=== PATIENT | male | born 1960 | race Caucasian/White ===

== ENCOUNTER 2020-10-31 07:15 | Day surgery (SDC) | payer MEDICARE ==
[~2020-10-31 07:15] MED LIST: Lactated Ringers 1,000 ML IV SCH
[2020-10-31] MEDS ORDERED: Lactated Ringers 1,000 ML IV ONE (07:18)
[2020-10-31] MEDS ORDERED: DIPRIVAN 200 MG/20 ML IV ONE (07:42)
--- NOTE | 2020-10-31 09:43 | OP ---
SURGERY DATE/TIME: 10/31/2020 0743 PREOPERATIVE DIAGNOSIS: Screening exam. POSTOPERATIVE DIAGNOSIS: Sigmoid diverticulosis otherwise normal colon. PROCEDURE: Colonoscopy. SURGEON: Dr. Fernández. ANESTHESIA: MAC. Medications given by anesthesia department. HISTORY: The patient is a 60 year-old white male patient presenting now for screening colonoscopy. He was appraised of the risks of the procedure including the risk of perforation, phlebitis, untoward reaction to medication, bleeding and missed lesions. The patient verbalized his understanding and desired to have the procedure performed. DESCRIPTION OF PROCEDURE: The patient was given the medications by the anesthesia department. He had continuous pulse oximetry, ECG monitoring, intermittent blood pressure monitoring and tidal CO2 monitoring during the examination. He was placed in the left lateral decubitus position. A digital rectal examination was performed and revealed normal anal sphincter tone, no masses and normal prostate. The flexible Olympus pediatric colonoscope was used to intubate the rectum. A view of the colon was developed sequentially to the cecum. Upon insertion and withdrawal including a retroflex view in the rectum was noted mild to moderate sigmoid diverticulosis otherwise no mucosal lesions were encountered. The scope was removed from the patient who tolerated the procedure well and was sent back to OP recovery in good condition. The prep was noted to be fair to good.
[2020-10-31 10:28] VITALS: O2SAT 100
[2020-10-31 10:33] VITALS: BP 131/70; PULSE 65
== END 2020-10-31 08:50 | disposition home or self-care (01) ==
LOC: SDC 07:15
PROVIDERS: ATTEND Family Medicine
DX: Z12.11 Encounter for screening for malignant neoplasm of colon (principal); K57.30 Diverticulosis of large intestine without perforation or abscess without bleeding
CPT/HCPCS: J2704

== ENCOUNTER 2022-03-08 10:29 | Day surgery (SDC) | payer MEDICARE ==
--- NOTE | 2022-03-08 08:12 | HP ---
DATE OF SURGERY: 03/08/2022 HISTORY OF PRESENT ILLNESS: The patient is a 62-year-old with increasing in size defect mid abdomen, increased size with strain and discomfort. It was felt the patient had incarcerated ventral hernia low epigastric as well as mid abdomen. I recommend repair laparoscopic-assisted possible open incarcerated ventral hernia with mesh. PAST MEDICAL HISTORY: Depression, hyperlipidemia, hypertension, chronic obstructive pulmonary disease, psoriasis. PAST SURGICAL HISTORY: Inguinal hernia repair x2. MEDICATIONS: Ventolin, theophylline, testosterone, sertraline, lisinopril, Combivent, amlodipine, Advair Diskus, aspirin. He has taken some Viagra in the past. ALLERGIES: NKDA. FAMILY HISTORY: Heart disease. SOCIAL HISTORY: One pack per day smoker. REVIEW OF SYSTEMS: Fourteen systems reviewed. No chest pain or palpitations. Other systems negative or noncontributory as above and per preadmission questionnaire. PHYSICAL EXAMINATION: GENERAL: No acute distress. HEENT: Sclerae nonicteric. NECK: No JVD. CHEST: Equal excursion, nonlabored breathing. CVS: Regular rate and rhythm. ABDOMEN: Soft, increasing defect epigastric and mid abdomen likely with some incarcerated fat or omentum. EXTREMITIES: No significant edema. NEURO: Alert, moving extremities symmetrically. No gross motor deficits noted. RECTAL: Deferred timed to endoscopy exam. PSYCH: Appropriate mood and affect. IMPRESSION: Incarcerated ventral hernia. I feel the patient would benefit from repair. Discussed options of laparoscopic-assisted repair with mesh possible open. General risk of bleeding or infection, risk of trocar injury or hernia, risk of bowel, bladder, blood vessel injury, risk of adhesion, scar formation or obstruction. Perioperative risk of ileus, aches and pains possible tank filler or chronic in nature. Risk of recurrence. Risk of mesh infection possibly requiring removal. Risk of hematoma or seroma formation, risk of hernia recurrence, remote risk of mesh fracture or failure possibly creating issue with the viscera or other structures. General risk of anesthesia, sedation, deep venous thrombosis, pulmonary embolism, pneumonia but not limited to, possible need for admission for pain control. Consent obtained, will proceed with laparoscopic-assisted repair of incarcerated ventral hernia with mesh possible open as an outpatient.
[~2022-03-08 10:29] MED LIST changes: -Lactated Ringers 1,000 ML IV SCH; +Sensorcaine 0.25% 10 ML ONE
[2022-03-08] MEDS ORDERED: CEFAZOLIN 2 GM-D5W BAG** 2 GM/50 ML ML IV ONE (10:56)
[2022-03-08] MEDS ORDERED: Lactated Ringers 1,000 ML IV ONE (10:56)
[2022-03-08] MEDS: Lactated Ringers 1,000 ML IV SCH (10:59)
[2022-03-08] MEDS: CEFAZOLIN 2 GM-D5W BAG** 2 GM/50 ML ML IV SCH (10:59)
[2022-03-08] MEDS ORDERED: Versed 2 MG/2 ML Injection ONE (12:57)
[2022-03-08] MEDS ORDERED: DIPRIVAN 200 MG/20 ML IV ONE (12:58)
[2022-03-08] MEDS ORDERED: SUBLIMAZE 250 MCG/5 ML ONE (12:58)
[2022-03-08] MEDS ORDERED: Decadron 4 MG INJ ONE (12:59)
[2022-03-08] MEDS ORDERED: Zemuron 100 MG/10 ML ONE ×2 (12:59→14:04)
[2022-03-08] MEDS ORDERED: Xylocaine-Mpf 2% 5 Ml Vial ONE (12:59)
[2022-03-08] MEDS ORDERED: BRIDION 200MG/2ML IV ONE (12:59)
[2022-03-08] MEDS ORDERED: Zofran 4 MG/2 ML VIAL ONE (12:59)
[2022-03-08] MEDS ORDERED: TORAdol 30 mg Injection ONE (12:59)
[2022-03-08] MEDS ORDERED: PHENYLEPHRINE HCL ONE (13:24)
[2022-03-08] MEDS ORDERED: Marcaine 0.5%/Epinephrine 10 ML ONE (13:54)
[2022-03-08 15:00] LABS: Epithelial Cells RARE /HPF (FEW); WBC 0-2 /HPF (0-5)
[2022-03-08 15:03] LABS: Appearance CLEAR (CLEAR)
[2022-03-08 15:04] LABS: Bilirubin NEGATIVE (NEGATIVE); Blood TRACE NON-HEM Ery/ul (0-5); Glucose NEGATIVE (NEGATIVE); Ketones NEGATIVE (NEGATIVE); Leukocyte Esterase NEGATIVE (NEGATIVE); Nitrite NEGATIVE (NEGATIVE); Protein,Urine Dip NEGATIVE (Negative); Urobilinogen 1 mg/dL (0-1)
[2022-03-08] MEDS: NORCO 5/325 MG PO PRN (15:20)
[2022-03-08 15:37] VITALS: O2SAT 97
[2022-03-08 15:58] VITALS: BP 158/94; PULSE 67
--- NOTE | 2022-03-09 10:51 | OP ---
SURGERY DATE/TIME: 03/08/2022 1259 PREOPERATIVE DIAGNOSIS: Incarcerated epigastric and mid abdominal ventral hernia. POSTOPERATIVE DIAGNOSIS: Incarcerated epigastric and mid abdominal ventral hernia. PROCEDURE: Laparoscopic-assisted repair incarcerated ventral hernia en bloc with a single piece of mesh ([address]). SURGEON: Dr. César Skinner. ANESTHESIA: General. ESTIMATED BLOOD LOSS: Minimal. INDICATIONS: Risks and benefits explained in detail and not limited to and consent obtained. The site is confirmed in the preoperative holding area. DESCRIPTION OF PROCEDURE AND FINDINGS: The patient is taken to the operating room. General anesthesia induced. Abdomen prepped and draped in usual sterile fashion. After official time out and no disagreement with planned procedure, a transverse incision made in the left upper quadrant. Fascia grasped and pulled upwards. Veress needle inserted and tested with saline. Pneumoperitoneum accomplished opening pressure 0 to 15. A left upper quadrant 5 mm bladeless port and camera inserted without difficulty. There is no evidence of any intra-abdominal injury secondary to trocar insertion. The left lateral mid abdomen port is placed. A 5 mm left upper quadrant port and 5 mm right mid abdomen port is placed under direct vision of the camera. The patient did have some generalized diastasis of his upper abdomen but was able to get into the preperitoneal flank plane which was carefully dissected cephalad and caudally around the hernia defect. There was an epigastric ventral hernia more cephalad and a smaller umbilical area component. These were both reduced and the incarcerated preperitoneal fat was carefully reduced out. It was felt that these two hernias should be repaired en bloc as a single hernia with mesh. Once the incarcerated fat had been reduced out of the hernia defect, it was felt these should be repaired en bloc with a single piece of mesh to allow for adequate overlap in all directions. It was felt the [address] is the most appropriate size and carefully marked on the skin four quadrant 0 Ethibond stay sutures were placed in the mesh with the suture passer. As he did not have a massive amount of subcu fat it was elected to use the #1 Vicryl and it was carefully passed transfascial sutures 1 cm apart in interrupted fashion to be tied later in the case. At this point the 11/12 port was easily placed through the defect. The mesh was wet and then dropped down into the abdomen. The port was removed. The transfascial sutures were then removed bringing the fascial edges back to the midline where they were supposed to be. Once this was accomplished, the suture passer was used to pull this central 0 Vicryl suture that was placed in the center of the mesh. The center was carefully pulled up and tagged. The four quadrant 0 Ethibond is then pulled up to be tied transfascially. Once this was accomplished, the c Capture Tacker was then placed about 1 cm around the periphery with a couple extra ones placed centrally to reduce the risk of seroma formation. The mesh is nice and flat. This is all done with the pressure having been turned down to 8 at this point during the dissection and the fascial closure as well as placing the mesh to avoid distortion nice and flat in a tension free manner. At this point pneumoperitoneum decompressed. Ports removed. The subcu where the mesh had been dropped was tacked down to the fascia with 3-0 Vicryl. Skin incision closed with 4-0 Vicryl. Steri-Strips and sterile dressing applied. Anesthesia applied tap blocks for pain control. There were no immediate complications. There was no family or friend out in the waiting area when I went out there. The patient tolerated the procedure well.
== END 2022-03-08 16:00 | disposition home or self-care (01) ==
LOC: SDC 10:29
PROVIDERS: ATTEND Surgery
DX: K43.6 Other and unspecified ventral hernia with obstruction, without gangrene (principal); Z79.899 Other long term (current) drug therapy
CPT/HCPCS: 64488; 76937; 76942; 81001; 87086; J0690; J1100; J1885; J2250; J2370; J2405; J2704; J3010; L0625; A9270-GY; C1781

== ENCOUNTER 2023-03-19 10:44 | Emergency (ER) | payer MEDICARE ==
[2023-03-19 11:01] VITALS: BP 149/79; RESP 18; TEMP 97.2
[2023-03-19] MEDS ORDERED: XYLOCAINE 1% HCL 20 ML MDV IJ ONE (11:28)
--- NOTE | 2023-03-19 11:28 | ERPHSYRPT ---
- History of Present Illness Time Seen by Provider: 03/19/23 10:56 Source: patient Exam Limitations: no limitations Patient Subjective Stated Complaint: PT HERE FOR LACERATION TO LEFT HAND FROM A CUT OFF SAW BLADE, Triage Nursing Assessment: PT ALERT, WALKED IN, RESP EASY, SKIN W/D/P, HAS LACERATION BETWEEN 2ND AND THIRD DIGIT, NO BLEEDING Physician History: 63-year-old [id number] male presented in the ER with chief complaint of laceration left webspace between index and third digit with a saw knife while working prior to arrival. Patient reports moderate intensity sharp pain with movements at the second and third metacarpophalangeal joint. No numbness or tingling in the fingers. Unsure about tetanus status. Patient has 3 cm laceration webspace between second and third digit. No active spurting or oozing. Intact movements at metacarpophalangeal and interphalangeal joints. Intact interossei. I have obtained an x-ray which ruled out any foreign body, fracture dislocation reviewed by me, official report is pending. Laceration is repaired. Tetanus is updated. It was a clean wound, do not think needs antibiotics. Recommended symptomatic treatment and outpatient follow-up. Discussed signs symptoms of worsening needing return to ER which he seems understanding. Allergies/Adverse Reactions: No Known Drug Allergies Allergy (Verified 03/19/23 10:49) Home Medications: Albuterol 2.5 mg/3 ml Neb [Proventil 2.5 mg/3 ml Neb] 1 neb NEB Q8HPRN PRN 10/23/20 [History] Albuterol Sulfate [Ventolin Hfa] 18 gm IH Q8HPRN PRN 10/23/20 [History] Amlodipine Besylate 5 mg [Norvasc 5 mg] 5 mg PO DAILY 10/23/20 [History] Cyclobenzaprine HCl 10 mg [Cyclobenzaprine 10 MG] 10 mg PO DAILY 10/23/20 [History] Fluticasone/Salmeterol [Advair 250-50 Diskus] 1 each IH DAILY 10/23/20 [History] Ipratropium/Albuterol Sulfate [Combivent Inhaler] 15 gm IH DAILY 10/23/20 [History] Lisinopril/Hydrochlorothiazide [Lisinopril-Hctz 10-12.5 mg Tab] 1 each PO DAILY 10/23/20 [History] Montelukast Sodium 10 mg [Singulair 10 MG] 10 mg PO DAILY 10/23/20 [History] Sertraline HCl 50 mg [Zoloft 50 mg Tablet] 100 mg PO DAILY 10/23/20 [H istory] Tamsulosin HCl 0.4 mg [Flomax 0.4 MG] 0.4 mg PO DAILY 10/23/20 [History] Hx Tetanus, Diphtheria Vaccination/Date Given: No Hx Influenza Vaccination/Date Given: Yes Hx Pneumococcal Vaccination/Date Given: No Immunizations Up to Date: Yes Travel Risk - International Travel Have you traveled outside of the country in past 3 weeks: No - Coronavirus Screening Are you exhibiting any of the following symptoms?: No Symptoms: Shortness of Breath Close contact with a COVID-19 positive Pt in past 14-21 Days: No - Vaccine Status Have you recieved a Covid-19 vaccination: Yes 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 - Review of Systems Constitutional: No Symptoms Ears, Nose, & Throat: No Symptoms Respiratory: No Symptoms Cardiac: No Symptoms Abdominal/Gastrointestinal: No Symptoms Musculoskeletal: Injury Skin: Skin Lesions Neurological: No Symptoms Hematologic/Lymphatic: No Symptoms Immunological/Allergic: No Symptoms - Past Medical History Pertinent Past Medical History: Yes Neurological History: No Pertinent History ENT History: No Pertinent History Cardiac History: Hypertension, Other Respiratory History: Asthma, COPD, Emphysema Endocrine Medical History: No Pertinent History Musculoskeletal History: Arthritis GI Medical History: No Pertinent History History: No Pertinent History Psycho-Social History: No Pertinent History, Other Male Reproductive Disorders: No Pertinent History Other Medical History: HEART MURMUR, HERNIA,mood swings, skin rask looking area to lower abd area unopen but pt states has been scratching it, area lt pink nonopen raised areas, few areas noted to bilat lower legs as well, sites are dry nonopen - Past Surgical History Past Surgical History: Yes (HERNIA REPAIR X 2) Neuro Surgical History: No Pertinent History Cardiac: No Pertinent History Respiratory: No Pertinent History Gastrointestinal: No Pertinent History Genitourinary: No Pertinent History Musculoskeletal: No Pertinent History Male Surgical History: No Pertinent History Other Surgical History: right leg,colonoscopy - Social History Smoking Status: Current every day smoker How long have you smoked: age 17 Exposure to second hand smoke: Yes Drug Use: none Patient Lives Alone: No - Nursing Vital Signs Nursing Vital Signs: Initial Vital Signs Temperature 97.2 F 03/19/23 11:00 Pulse Rate 78 03/19/23 11:00 Respiratory Rate 18 03/19/23 11:00 Blood Pressure 149/79 03/19/23 11:00 O2 Sat by Pulse Oximetry 97 03/19/23 11:00 Pain Scale Pain Intensity 0 - Physical Exam General Appearance: no apparent distress, alert Eye Exam: PERRL/EOMI Ears, Nose, Throat Exam: normal ENT inspection Neck Exam: normal inspection, non-tender, supple, full range of motion Respiratory Exam: normal breath sounds, lungs clear Cardiovascular Exam: regular rate/rhythm, normal heart sounds Gastrointestinal/Abdomen Exam: soft Extremity Exam: lacerations (Left hand), tenderness Neurologic Exam: alert, oriented x 3, cooperative, sled maker II-XII nml as tested Skin Exam: normal color SpO2 Interpretation: normal SpO2: 97 O2 Delivery: Room Air Procedures - Laceration/Wound Repair Left Hand Time of Procedure: 11:30 Wound Length (cm): 3 Wound's Depth, Shape: into muscle, linear Wound Explored: clean Irrigated: Yes Hibiclens Prep: Yes Anesthesia: local, 1% Lidocaine Volume Anesthetic (ccs): 5 Suture Size/Type: 4-0, ethilon Number of Sutures: 7 Sterile Dressing Applied?: Yes Splint Applied?: Yes Type of Splint Applied: Premade aluminum Ordered Tests: Active Orders 24 hr Category Date Time Status HAND (MINIMUM 3 VIEWS) Stat Exams 03/19/23 10:59 Taken Medication Summary Discontinued Medications Generic Name Dose Route Start Last Admin Trade Name Freq PRN Reason Stop Dose Admin Lidocaine HCl 5 ml 03/19/23 11:28 03/19/23 11:32 Lidocaine Hcl 1% 20 Ml Mdv 20 Ml Ml IJ 03/19/23 11:29 5 ml STAT ONE Administration Lidocaine HCl Confirm 03/19/23 11:29 Lidocaine Hcl 1% 20 Ml Mdv 20 Ml Ml Administered 03/19/23 11:30 Dose 5 ml .ROUTE .[facility] - Progress Progress: improved Progress Note: 03/19/23 11:31 63-year-old [id number]-[id number] male presented in the ER with chief complaint of laceration left webspace between index and third digit with a saw knife while working prior to arrival. Patient reports moderate intensity sharp pain with movements at the second and third metacarpophalangeal joint. No numbness or tingling in the fingers. Unsure about tetanus status. Patient has 3 cm laceration webspace between second and third digit. No active spurting or oozing. Intact movements at metacarpophalangeal and interphalangeal joints. Intact interossei. I have obtained an x-ray which ruled out any foreign body, fracture dislocation reviewed by me, official report is pending. Laceration is repaired. Tetanus is updated. It was a clean wound, do not think needs antibiotics. Recommended symptomatic treatment and outpatient follow-up. Discussed signs symptoms of worsening needing return to ER which he seems understanding. Counseled pt/family regarding: diagnosis, need for follow-up, rad results Medical Desision Making - Diagnostic Testing Diagnostic test were ordered, analyzed, and reviewed by me: Yes Radiological Interpretation: Interpreted by me, Reviewed by me - Departure Departure Disposition: Home Clinical Impression: Hand laceration Condition: Stable Critical Care Time: No Referrals: TAMIE SAUCEDA [Primary Care Provider] - Follow up with PCP 2 days Instructions: Laceration Repair With Stitches (DC) Additional Instructions: Take Tylenol/ibuprofen as needed. Keep it clean. Follow-up with primary care for reevaluation. Suture removal in 2 weeks. Return to ER for intractable pain swelling redness, difficulty movements of the fingers/fever chills etc. Prescriptions: Ibuprofen 600 mg PO Q6HPRN PRN 10 Days #20 tablet PRN Reason: Pain
[2023-03-19] MEDS ORDERED: XYLOCAINE 1% HCL 20 ML MDV ONE (11:29)
[2023-03-19] MEDS ORDERED: Adacel Vial IM ONE ×2 (11:51→11:55)
[2023-03-19 12:18] VITALS: PULSE 72; O2SAT 87
--- NOTE | 2023-03-19 20:10 | XRAY ---
Indication: Laceration. Comparison: None 3 view left hand demonstrates osteopenia, minimal/mild degenerative changes all IP/MCP joints, moderate degenerative changes 1st metacarpal multangular articulation, and well-circumscribed ulnar styloid ossification either developmental versus old injury. No other bony, articular, or soft tissue abnormalities.
== END 2023-03-19 12:18 | disposition home or self-care (01) ==
LOC: ED 10:44
DX: S61.412A Laceration without foreign body of left hand, initial encounter (principal); W26.0XXA Contact with knife, initial encounter; I10 Essential (primary) hypertension; Z79.899 Other long term (current) drug therapy; Z72.0 Tobacco use; Z23 Encounter for immunization
CPT/HCPCS: 12002; 73130; 90471; 90715; 99283